=== PATIENT | female | born 1935 | race Caucasian/White ===

== ENCOUNTER 2016-12-19 17:18 | Inpatient (IN) | payer OTHER ==
[~2016-12-19] VITALS: Ht 162.6 cm; Wt 58.6 kg
--- NOTE | ~2016-12-19 | HC ---
[facility] [address] [place] [address] CONSULTATION Name: EBER LANDA RODRI Room #: 209-P ADM IN M.R.#: [id number] Admission: 12/19/16 Attend Phys: Modesto Melendez DO Discharge: Date of : 33 Report #: [id number] THIS REPORT FOR: //name// CC: [facility] physician/PCP Modesto Melendez DATE OF SERVICE: 12/21/2016 HISTORY OF PRESENT ILLNESS: The patient is an 81-year-old white female who was admitted with increased shortness of breath. She was noted to have hypoxia, acute exacerbation of COPD with acute hypoxemic respiratory failure. Pulmonary medicine is involved. She is on nasal prong O2, currently 3.5 liters. She is on IV Solu-Medrol as well as IV levofloxacin and breathing treatments as per respiratory therapy. We are seeing her in rehabilitation medicine consultation. PAST MEDICAL HISTORY: Includes cervical laminectomy, pulmonary hypertension, COPD, hyperlipidemia, prior left wrist fracture. HABITS: No history of tobacco or ETOH usage/abuse. MEDICATIONS: Please see the full medication listing. ALLERGIES: PENICILLIN. SOCIAL HISTORY: Lives alone, has oxygen at home, although she is uncertain how much. She notes she will use it when she is lying on the couch, watching television. She indicated that she did not utilize gait aids. There are 4 steps into her house. She does not always wear her oxygen. She does drive in the community. She has a daughter that lives in [place] and from the case management notes, it sounds like they do not get along. She also has a son who is not involved per case management notes. REVIEW OF SYSTEMS: Did not offer any current complaints of chest pain, but complains of the cough. Some shortness of breath with increased activity. No abdominal complaints. No focal extremity complaints. PHYSICAL EXAMINATION: GENERAL: She is cantankerous 81-year-old white female, not fully cooperative with this examiner. VITAL SIGNS: Temperature is 97.3, pulse 80, respirations 16, blood pressure 153/73. She is currently on 3-1/2 liters nasal prong O2. HEENT: Facies appeared symmetric. EXTREMITIES: She has functional range of motion of both upper and lower extremities. Strength is grade 4-/5. DTRs are trace to 1. Tone appeared to be intact. No distal lower extremity edema. No focal calf swelling. [address] [address] CONSULTATION Name: SYEDAEBER RODESSA Room #: 209-P [facility] IN M.R.#: [id number] Admission: 12/19/16 Attend Phys: Modesto Melendez DO Discharge: Date of : 33 Report #: [id number] ASSESSMENT: An 81-year-old white female with the following problem list: 1. Pulmonary rehabilitation. 2. Acute hypoxemic respiratory failure. 3. Acute exacerbation of chronic obstructive pulmonary disease. 4. Community-acquired pneumonia. 5. Chronic respiratory disease. 6. Dehydration. 7. Past history of chronic tobacco use. There is a reference of chronic tobacco history. 8. Elevated troponin. 9. Prior cervical laminectomy. 10. History of pulmonary hypertension. 11. Hyperlipidemia. 12. Acute on chronic respiratory failure. PLAN: Therapy evaluations are underway. We will be glad to follow along with you regarding rehab therapy needs. By: 0914 1101 Zachery Guillaume MD /nt
--- NOTE | ~2016-12-19 | HC ---
[facility] [place] [address] CONSULTATION Name: EBER LANDA RODRI Room #: 209-P ADM IN M.R.#: [id number] Admission: 12/19/16 Attend Phys: Modesto Melendez DO Discharge: Date of : 33 Report #: [id number] THIS REPORT FOR: //name// CC: [facility] physician/PCP Modesto Melendez DATE OF SERVICE: 12/20/2016 DATE OF SERVICE: 12/20/2016. REFERRING PROVIDER: Dr. Modesto Melendez. REASON FOR CONSULTATION: Exacerbation of chronic obstructive pulmonary disease. HISTORY OF PRESENT ILLNESS: Our group was asked to consult on the patient, a pleasant 81-year-old woman with a past pulmonary history significant for severe tobacco abuse, quitting several years ago as well as for chronic obstructive pulmonary disease. She has a p.r.n., albuterol inhaler at home, has not seen a physician on a regular basis. Has had increased shortness of breath and cough for the past 3 days with some associated wheezing. Denies any fevers, chills or sweats. Has some supplemental oxygen at home, but has not been using it either, presented to the Emergency Department for further evaluation because of persistent symptoms. She was found to be hypoxemic in the Emergency Department. Chest x-ray yesterday evening did suggest chronic obstructive pulmonary disease and early right lower lung infiltrate. She has been admitted on therapy for community-acquired pneumonia and acute exacerbation of chronic obstructive pulmonary disease. ALLERGIES: Include PENICILLIN. PAST MEDICAL HISTORY: 1. Chronic obstructive pulmonary disease, severity not quantified in the records available. 2. History of pulmonary hypertension. 3. Hyperlipidemia. OUTPATIENT MEDICATIONS: None. SOCIAL HISTORY: The patient is an ex-smoker. No significant alcohol consumption and lives independently, has 3 cats. FAMILY HISTORY: Noncontributory due to advanced age. REVIEW OF SYSTEMS: Rest of 12 point review of systems is normal. PHYSICAL EXAMINATION: [facility] [address] [place] [address] CONSULTATION Name: EBER LANDA NEWELL Room #: 209-P [facility] IN [facility]#: [id number] Admission: 12/19/16 Attend Phys: Modesto Melendez, DO Discharge: Date of : 33 Report #: [id number] VITAL SIGNS: Afebrile, pulse 70s, respiratory rate 18, blood pressure 130/48, oxygen saturation 93% on 4 liters. GENERAL: This is a pleasant elderly woman, in no apparent distress. ENT: Clear oropharynx. Mallampati 1 airway. NECK: Supple. No lymphadenopathy. Jugular venous pressure not elevated. LUNGS: Revealed prolonged expiratory phase, diffuse expiratory wheezes noted throughout. CARDIOVASCULAR: Heart was regular. No murmurs noted. ABDOMEN: Soft, nontender, no masses. EXTREMITIES: Warm, 2+ pulses, no edema. INTEGUMENT: No rash identified. LABORATORY DATA: White blood cell count 3000, hemoglobin 12, hematocrit 36, platelet count 135 and MCV is 79. Sodium 142, potassium 4.2, chloride 103, bicarbonate 28, BUN 42, creatinine 1.0. Glucose 247. Arterial blood gas on 4 liters revealed pH 7.42, pCO2 of 45, pO2 of 50, bicarbonate 29. INR 1.0. Cultures are pending. No sputum culture ordered. IMPRESSION: 1. Acute exacerbation of chronic obstructive pulmonary disease. 2. Acute hypoxemic respiratory failure. 3. Community-acquired pneumonia, possibly influenza. SUGGESTIONS: 1. Steroid taper. 2. Bronchodilators, begin with DuoNebs. 3. Continue with Rocephin and azithromycin. 4. Nasal swab for respiratory viral panel. 5. Await sputum and blood cultures. 6. Follow up chest radiograph. 7. Mobilize. 8. Additional recommendations to follow. Thank you for requesting our suggestions. <ELECTRONICALLY SIGNED> By: Sai Bolton MD 12/24/16 1118 [id number] [id number] Sai Bolton MD /nt
--- NOTE | ~2016-12-19 | HC ---
[facility] [place] [address] CONSULTATION Name: EBER LANDA RODRI Room #: 209-P ADM IN M.R.#: [id number] Admission: 12/19/16 Attend Phys: Modesto Melendez DO Discharge: Date of : 33 Report #: [id number] THIS REPORT FOR: //name// CC: [facility] physician/PCP Modesto Melendez REASON FOR CONSULTATION: Elevated troponin. HISTORY OF PRESENT ILLNESS: The patient is an 81-year-old woman with severe chronic obstructive pulmonary disease with pulmonary hypertension. She was admitted with COPD exacerbation. In this setting, a troponin was ordered and elevated at 0.22. Interestingly, every troponin that she has had has been abnormal for the past 4-5 years. An echocardiogram this admission, which I have reviewed demonstrated normal left ventricular systolic function. Right atrial enlargement and severe pulmonary hypertension. The patient denies chest pain, pressure or ischemic type symptoms. No history of palpitations, near syncope or syncope. Her main problem is productive cough, exertional breathlessness and wheezing. ALLERGIES: She is allergic to PENICILLIN. MEDICATIONS: She takes no home medicines. She has been prescribed atenolol for unknown reasons but ran out many years ago. PAST MEDICAL HISTORY: Notable for COPD, dyslipidemia, cervical laminectomy, osteoporosis. SOCIAL HISTORY: She is a former heavy smoker. FAMILY HISTORY: Unremarkable for premature coronary artery disease. REVIEW OF SYSTEMS: All systems negative except as that noted above. PHYSICAL EXAMINATION: GENERAL: A frail elderly woman in no distress. VITAL SIGNS: Blood pressure is 150/70, heart rate of 80 and regular. She is afebrile, 5 feet 4 inches tall and 113 pounds. HEENT: There are neither xanthelasma, subcutaneous xanthomata, oral mucosal or digital cyanosis or kyphoscoliosis present. CHEST: Reveals scattered rhonchi, diminished breath sounds at both bases, expiratory wheezes. CARDIAC: Regular rate and rhythm with an increased pulmonic closure sound. ABDOMEN: Soft and nontender. EXTREMITIES: Without cyanosis, clubbing or edema. Radial pulses are 2+. NEUROLOGIC: She is alert with a nonfocal exam. LABORATORY DATA: Sodium 137, potassium 3.5, creatinine 0.9. Troponin 0.19. [facility] [address] [place] [address] CONSULTATION Name: EBER LANDA PONSFORD Room #: 209-P ADM IN .R.#: [id number] Admission: 12/19/16 Attend Phys: Modesto Melendez DO Discharge: Date of : 33 Report #: [id number] ProBNP 3243. White count 8.4, hemoglobin 11, hematocrit 35, platelet count 174. RADIOLOGICAL DATA: Chest x-ray demonstrates chronic scarring in both lungs. IMPRESSION: 1. Chronic obstructive pulmonary disease exacerbation; pneumonia. 2. Severe pulmonary hypertension; right ventricular strain. 3. Prior tobacco dependency. 4. Tiny troponin elevation, chronic, consistent with right ventricular strain and severe pulmonary hypertension; chronic obstructive pulmonary disease exacerbation. RECOMMENDATIONS: Primary treatment directed towards exacerbation in her lung disease. At this point, no additional cardiovascular testing is warranted, I have discussed these issues with the patient. Thank you for asking me to participate in her care. <ELECTRONICALLY SIGNED> By: Morales Benavides MD, FACC 12/22/16 1217 0950 1122 Morales Benavides MD, FAC /nt
--- NOTE | ~2016-12-19 | EKG ---
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1935 Requested By: Jerome Zimmerman Order Number: [id number] MD: Morales Benavides Measurements Intervals Toponas Rate: 69 P: 72 FL: 138 QRS: 76 QRSD: 92 T: 16 QT: 445 QTc: 477 Interpretive Statements Sinus rhythm Borderline low voltage, extremity leads Nonspecific ST and T wave abnormality Baseline wander Compared to ECG 03/09/2016 21:57:00 Nonspecific change in the ST and T wave segments Electronically Signed On 12-20-2016 9:01:26 [employer] by Morales Benavides [email or web address] <ELECTRONICALLY SIGNED> By: Morales Benavides MD, [facility] 12/20/16900 181 16 Morales Benavides MD, [facility] /EPI
--- NOTE | ~2016-12-19 | 2DMMODE ---
[facility] [employer] [place] [address] 2 D/M-MODE ECHOCARDIOGRAM Name: SYEDAEBER RODRI Room #: 209-P [facility] IN .R.#: [id number] Admission: 12/19/16 Attend Phys: Modesto Melendez, Discharge: Date of : 33 Date of Service: 12/20/16 0948 Report #: [id number] THIS REPORT FOR: //name// APPROVED REPORT EXAM: Comprehensive 2D, Doppler, and color-flow Echocardiogram Patient Location: In-Patient/Room 209 Blood Pressure: 130/48 mmHg HR: 72 bpm Other Information Study Quality: Adequate Indications Dyspnea Hx: PHTN, COPD, HLP 2D Dimensions RVDd: 36.38 mm LVEF(%): 70.94 (>50%) IVSd: 10.07 (7-11mm) LVOT Diam: 20.06 (18-24mm) LVDd: 41.47 mm PWd: 9.86 (7-11mm) Ascending Aorta: 30.76 mm LVDs: 24.93 (25-40mm) Aortic Root: 30.00 mm Maxwell's LVEF: 70.94 % Volumes Left Atrial Volume (Systole) Single Plane 4CH: 25.71 mL Single Plane 2CH: 41.77 mL LA ESV Index: 23.00 mL/m2 Aortic Valve AoV Peak Ethan.: 1.75 m/s AO Peak Gr.: 12.25 mmHg LV Max P.70 mmHg LV Max: 1.19 m/s Mitral Valve MV PHT: 79.88 ms MV E Max Ethan.: 0.89 m/s E/A Ratio: 0.8 MV A Ethan.: 1.11 m/s MV Decel. Time: 275.46 ms TDI [facility] [employer] [place] [address] 2 D/M-MODE ECHOCARDIOGRAM Name: EBER LANDA PAGE Room #: 209-[facility] IN M.R.#: [id number] Admission: 12/19/16 Attend Phys: Modesto Melendez, Discharge: Date of : 33 Date of Service: 12/20/16 0948 Report #: [id number] E/Lateral E': 11.00 E/Medial E': 13.00 Pulmonary Valve PV Peak Ethan.: 1.16 m/s PV Peak Gr.: 5.50 mmHg Tricuspid Valve TR Peak Ethan.: 3.55 m/s RAP Estimate: 5.00 mmHg TR Peak Gr.: 50.34 mmHg RVSP: 55.00 mmHg Left Ventricle The left ventricle is normal size. There is normal LV segmental wall motion. There is normal left ventricular wall thickness. Left ventricular systolic function is normal. LVEF is 60%. Grade I - abnormal relaxation pattern. Right Ventricle The right ventricle is normal size. The right ventricular systolic function is normal. Atria The left atrium size is normal. Right atrium appears mildly dilated. Aortic Valve Aortic valve is mildy calcified. No aortic regurgitation is present. There is no aortic valvular stenosis. Mitral Valve Mitral valve leaflets are mildly thickened and calcified. Trace mitral regurgitation. Tricuspid Valve The tricuspid valve is normal in structure. There is moderate tricuspid regurgitation. The right atrial pressure is estimated at 5 mmHg. Right ventricular systolic pressure is estimated at 55 mmHg. There is moderate pulmonary hypertension. Pulmonic Valve The pulmonary valve is normal in structure. Trace pulmonic regurgitation. Great Vessels The aortic root is normal in size. IVC is normal in size and collapses >50% with inspiration. Pericardium [facility] [address] [place] [address] 2 D/M-MODE ECHOCARDIOGRAM Name: SYEDAEBER PAGE Room #: 209-P [facility] IN .R.#: [id number] Admission: 12/19/16 Attend Phys: Modesto Melendez, Discharge: Date of : 33 Date of Service: 12/20/16 0948 Report #: [id number] There is no pericardial effusion. <Conclusion> The left ventricle is normal size. There is normal left ventricular wall thickness. Left ventricular systolic function is normal. The right ventricle is normal size. The left atrium size is normal. Right atrium appears mildly dilated. There is no aortic valvular stenosis. Trace mitral regurgitation. There is moderate tricuspid regurgitation. The right atrial pressure is estimated at 5 mmHg. Right ventricular systolic pressure is estimated at 55 mmHg. There is moderate pulmonary hypertension. There is no pericardial effusion. <ELECTRONICALLY SIGNED> By: Festus Chinchilla MD 12/20/16947 7 7 Festus Chinchilla MD /INF
[~2016-12-19 17:18] MED LIST: ACETAMINOPHEN325 M1 PO; ADVAIR 250-501 EACH INH; AMBIEN 10 MG TA10 MG PO; AMITRIPTYLINE H50 M3 PO; BP MED; COMBIVENT INH; DUONEB 2.5-0.5 M3 ML INH; ENALAPRIL MALEA10 M1 PO; ENOXAPARIN30 MG/0.1 SUBQ; NEXIUM40 MG PO; NORCO 5-325 TA1 EACH PO; PREDNISONE 20 M20 MG PO; SIMVASTATIN40 MG PO; TRAMADOL 50 MG50 MG PO
[2016-12-19 17:44] LABS: ABSOLUTE NEUTROPHILS 4.4 thou/uL (1.4-8.2); BASOPHILS 0.6 % (0.0-2.0); EOSINOPHILS 2.2 % (0.0-3.0); HEMATOCRIT 41.6 % (37.0-47.0); HEMOGLOBIN 13.4 gm/dL (12.0-15.0); LYMPHOCYTES 18.4 % (24.0-44.0); MCH 25.6 pg (26.0-34.0); MCHC 32.1 g/dL (28.0-37.0); MCV 79.5 fL (80.0-100.0); MONOCYTES 6.1 % (1.0-8.0); PLATELET COUNT 188 thou/uL (150-400); POLYS 72.7 % (36.0-66.0); RBC 5.23 mil/uL (4.20-5.00); RDW 17.1 % (10.5-14.5); WBC 6.1 thou/uL (4.0-11.0)
[2016-12-19 17:52] LABS: MANUAL DIFF NO
[2016-12-19 17:58] LABS: PROTIME 10.8 Seconds (9.3-11.4)
[2016-12-19 18:01] LABS: CALCIUM 8.9 mg/dL (8.5-10.1); POTASSIUM 3.5 mmol/L (3.5-5.1)
[2016-12-19 18:10] LABS: ALBUMIN 3.5 g/dL (3.4-5.0); TOTAL BILIRUBIN 0.6 mg/dL (<0.1-1.0); TOTAL PROTEIN 7.5 g/dL (6.4-8.2); TROPONIN-I 0.51 ng/mL (<0.04-0.07)
[2016-12-19 18:23] LABS: ABG SAMPLE TYPE ARTERIAL; BE(vivo) 3.5 mmol/L (-2 to +3); HCO3 28.5 mmol/L (22.0-26.0); O2(CT) 16.5 mL/dL (15.0-23.0); O2Hb 89.2 % (92.0-98.0); PCO2 44.9 mmHg (35.0-45.0); PO2 58.4 mmHg (80.0-100.0); pH 7.421 (7.360-7.450); sO2 90.7 % (92.0-98.0); tCO2 29.9 mmol/L (24.0-30.0)
[2016-12-19 18:24] LABS: STICK SITE R.RADIAL
[2016-12-19] MEDS ORDERED: HYDROCODONE-AP1 EAC6 PO (21:01)
[2016-12-20 03:32] LABS: HEMATOCRIT 36.3 % (37.0-47.0); HEMOGLOBIN 11.5 gm/dL (12.0-15.0); MANUAL DIFF YES; MCH 25.3 pg (26.0-34.0); MCHC 31.8 g/dL (28.0-37.0); MCV 79.4 fL (80.0-100.0); PLATELET COUNT 135 thou/uL (150-400); RBC 4.57 mil/uL (4.20-5.00); RDW 16.9 % (10.5-14.5); WBC 3.3 thou/uL (4.0-11.0)
[2016-12-20 03:47] LABS: POTASSIUM 4.2 mmol/L (3.5-5.1)
[2016-12-20 07:48] LABS: TOTAL CELL COUNT 100
[2016-12-20 07:49] LABS: ANISOCYTOSIS 1+; LARGE PLATELETS FEW; MICROCYTES SLIGHT
[2016-12-20 07:50] LABS: TOXIC GRANULATION SLIGHT
[2016-12-20 21:27] LABS: URINE BILIRUBIN NEGATIVE (Negative); URINE BLOOD NEGATIVE (Negative); URINE COLOR YELLOW; URINE GLUCOSE-RANDOM* TRACE (Negative); URINE KETONES NEGATIVE (Negative); URINE NITRITE NEGATIVE (Negative); URINE PROTEIN (DIPSTICK) NEGATIVE (Negative); URINE SPECIFIC GRAVITY 1.015 (1.003-1.035); URINE UROBILINOGEN 0.2 E.U./dl (0.2-1.0)
[2016-12-21 03:37] LABS: HEMOGLOBIN 11.3 gm/dL (12.0-15.0); MCH 25.6 pg (26.0-34.0); MCHC 32.3 g/dL (28.0-37.0); MCV 79.2 fL (80.0-100.0); PLATELET COUNT 174 thou/uL (150-400); RBC 4.42 mil/uL (4.20-5.00); RDW 17.3 % (10.5-14.5); WBC 8.4 thou/uL (4.0-11.0)
[2016-12-21 03:43] LABS: MANUAL DIFF YES
[2016-12-21 03:51] LABS: CALCIUM 8.5 mg/dL (8.5-10.1); CREATININE 0.9 mg/dL (0.6-1.3); POTASSIUM 3.5 mmol/L (3.5-5.1)
[2016-12-21 06:13] LABS: ABSOLUTE NEUTROPHILS 7.6 thou/uL (1.4-8.2); ANISOCYTOSIS 1+; MICROCYTES 1+; TOTAL CELL COUNT 100
[2016-12-21 09:31] LABS: CHOLESTEROL 140 mg/dL (<200); HDL CHOLESTEROL 46 mg/dL (>40); LDL CHOLESTEROL 81 mg/dL (<100); TRIGLYCERIDE 65 mg/dL (<150); VLDL 13 mg/dL (<40)
[2016-12-24 03:58] LABS: ALBUMIN 2.6 g/dL (3.4-5.0); CREATININE 0.7 mg/dL (0.6-1.3); POTASSIUM 4.7 mmol/L (3.5-5.1); TOTAL BILIRUBIN 0.2 mg/dL (<0.1-1.0); TOTAL PROTEIN 5.2 g/dL (6.4-8.2)
[2016-12-24 04:34] LABS: HEMATOCRIT 33.2 % (37.0-47.0); HEMOGLOBIN 10.5 gm/dL (12.0-15.0); MCH 25.2 pg (26.0-34.0); MCHC 31.6 g/dL (28.0-37.0); MCV 79.8 fL (80.0-100.0); PLATELET COUNT 181 thou/uL (150-400); RBC 4.15 mil/uL (4.20-5.00); RDW 17.4 % (10.5-14.5); WBC 7.9 thou/uL (4.0-11.0)
[2016-12-24 04:40] LABS: MANUAL DIFF YES
[2016-12-24 06:57] LABS: ABSOLUTE NEUTROPHILS 7.5 thou/uL (1.4-8.2); METAMYELOCYTES 1 %; MYELOCYTES 1 %; TOTAL CELL COUNT 100
[2016-12-24 06:58] LABS: ANISOCYTOSIS 1+; MICROCYTES 1+
[2016-12-24 23:11] LABS: INFLUENZA B Negative (Negative); METAPNEUMOVIRUS Negative (Negative)
[2016-12-25] MEDS ORDERED: TESSALON PERLE100 MG PO (13:17)
[2016-12-25] MEDS ORDERED: DUONEB 2.5-0.5 M3 ML INH (13:17)
[2016-12-25] MEDS ORDERED: ENOXAPARIN30 MG/0.1 SUBQ (13:17)
[2016-12-25] MEDS ORDERED: ACETYLCYST200 MG/1 M INH (13:17)
[2016-12-25] MEDS ORDERED: AMBIEN 5 MG TABL5 M1 PO (13:17)
[2016-12-25] MEDS ORDERED: LEVAQUIN 500 M500 M2 PO (13:17)
[2016-12-25] MEDS ORDERED: HYDROCODONE-CH473 M1 PO (13:17)
[2016-12-25] MEDS ORDERED: PREDNISONE 10 M10 MG PO (13:17)
== END 2016-12-25 16:19 | DRG 871 ==
LOC: ER 17:18 → EROBS 18:26 → 2N 18:26
PROVIDERS: Hospitalist; Internal Medicine Geriatric Medicine; Internal Medicine Pulmonary Disease; Nurse Practitioner Family; Physician Assistant
DX: A41.9 Sepsis, unspecified organism (principal); J18.9 Pneumonia, unspecified organism; J96.21 Acute and chronic respiratory failure with hypoxia; E46 Unspecified protein-calorie malnutrition; J44.1 Chronic obstructive pulmonary disease with (acute) exacerbation; J44.0 Chronic obstructive pulmonary disease with (acute) lower respiratory infection; E78.5 Hyperlipidemia, unspecified; E86.0 Dehydration; F41.9 Anxiety disorder, unspecified; I27.2 Other secondary pulmonary hypertension; Z60.2 Problems related to living alone; Z68.22 Body mass index [BMI] 22.0-22.9, adult; Z79.899 Other long term (current) drug therapy; Z88.0 Allergy status to penicillin; Z87.891 Personal history of nicotine dependence; Z87.81 Personal history of (healed) traumatic fracture; Z82.49 Family history of ischemic heart disease and other diseases of the circulatory system
CPT/HCPCS: 10081

== ENCOUNTER 2016-12-25 11:02 | Inpatient (IN) | payer OTHER ==
[~2016-12-25] VITALS: Ht 165.1 cm; Wt 58.2 kg
--- NOTE | ~2016-12-25 | PLAN ---
[facility] [place] [address] REHAB UNIT PLAN OF CARE Name: EBER LANDA RODRI Room #: 511-P [facility] IN M.R.#: [id number] Admission: 12/25/16 Attend Phys: Zachery Guillaume MD Discharge: 01/04/17 Date of : 33 Report #: [id number] THIS REPORT FOR: //name// CC: Zachery Guillaume [facility] physician/PCP The patient was seen back earlier this morning. Temperature 36.6, pulse 95, respirations 16, and blood pressure 166/68. She was having some difficulty with a significant cough and with dyspnea on exertion. Appreciate pulmonary medicine involvement. Respiratory therapy has been requested with IPV therapy being added. From a functional perspective, the patient has been transferring with contact guard assistance. She has ambulated up to 65 feet yesterday with a front-wheeled walker 20 feet today. In occupational therapy, she has been needing contact guard for basic dressing activities. In speech therapy, she has mild comprehensive deficits with functional expression. ASSESSMENT: 1. Pulmonary rehabilitation. 2. Acute hypoxemic respiratory failure. 3. Acute exacerbation of chronic obstructive pulmonary disease. 4. Community-acquired pneumonia. 5. Chronic respiratory disease. 6. Dehydration. 7. Past history of chronic tobacco abuse. 8. Elevated troponin. 9. Prior cervical laminectomy. 10. History of pulmonary hypertension. 11. Hyperlipidemia. 12. Acute on chronic respiratory failure. PLAN: The overall plan of care is based on the preadmission screen, post-admission physician evaluation and information garnered from therapy assessments. 1. Estimated length of stay is probably 10 days to 2 weeks and potentially longer if needed. 2. Medical prognosis is reasonably good. 3. Anticipated interventions includes the interdisciplinary acute inpatient rehabilitation program with the goal of maximizing the patient's functional independence, so she can hopefully return back to the home setting. We will have the interdisciplinary acute rehab team involved. 4. Anticipated functional outcomes would be for the patient to become modified independent with transfers, mobility and ADLs and to improve from a pulmonary perspective. 5. Discharge destination would be back to the home setting. 6. Expected therapy by discipline includes PT and OT and speech 1 hour per day each five days a week throughout the duration of the acute inpatient [facility] [address] [place] [address] REHAB UNIT PLAN OF CARE Name: EBER LANDA ELROD Room #: 511-P [facility] IN ..#: [id number] Admission: 12/25/16 Attend Phys: Zachery Guillaume MD Discharge: 01/04/17 Date of : 33 Report #: [id number] rehabilitation stay. We may be able to decrease the speech therapy some with increase in PT and OT. <ELECTRONICALLY SIGNED> By: Zachery Guillaume MD 01/04/17 1537 1450 1650 Zachery Guillaume MD /nt
--- NOTE | ~2016-12-25 | HC ---
[facility] [place] [address] CONSULTATION Name: EBER LANDA RODRI Room #: 511-P ADM IN M.R.#: [id number] Admission: 12/25/16 Attend Phys: Zachery Guillaume MD Discharge: Date of : 33 Report #: [id number] THIS REPORT FOR: //name// CC: Zachery Guillaume [facility] physician/PCP DATE OF SERVICE: 12/30/2016 NEUROBEHAVIORAL STATUS EXAM ATTENDING PHYSICIAN: Zachery Guillaume M.D BOARDMARKER: Paul Camacho, PhD CLINICAL PRESENTATION: The patient is an 81-year-old female admitted to the [facility] for a comprehensive inpatient rehabilitation program to assist with activities of daily living and self-care and mental status secondary to deficits from an exacerbation of chronic obstructive pulmonary disease and hypoxia. She was admitted on 12/19/2016, with acute hypoxemic respiratory failure. Her past medical history includes a cervical hemicolectomy, pulmonary hypertension, COPD, hyperlipidemia and a prior left wrist fracture. At this time, she carries a diagnosis of an acute exacerbation of COPD, community-acquired pneumonia, chronic respiratory disease, history of chronic tobacco use, dehydration, elevated troponin and a prior cervical laminectomy. An vqupx-if-miegisl respiratory failure was noted along with hyperlipidemia and a history of pulmonary hypertension and past cervical laminectomy. A complete description of her medical condition and history and medications can be found in her medical record. Neuropsychological consultation was requested to provide assistance in the assessment of cognitive and emotional status and to provide recommendations and services. Prior to this most recent admission, she reports living alone in her own home. She reports being estranged from her children. One child lives in [place] and the other in [place]. 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 She is a college graduate with a degree in [place] from [employer]. TECHNIQUES UTILIZED: Clinical interview, review of medical records, staff consultation and behavioral observation, mini mental status exam 2 standard version, verbal fluency assessment (letter and category) and clock drawing. EXAMINATION FINDINGS: She was alert and cooperative with the assessment. However, she was somewhat vague about the events surrounding her hospitalization. She presents with a brief amnesia surrounding her initial admission. Anxiety and depression are reported. Her mood appears irritable and depressed. Problems with breathing, sleep, appetite and energy level are [facility] [address] [place] [address] CONSULTATION Name: EBER LANDA SOCIAL CIRCLE Room #: 511-P [facility] IN M.R.#: [id number] Admission: 12/25/16 Attend Phys: Zachery Guillaume MD Discharge: Date of : 33 Report #: [id number] her primary complaints. She reports having maintained good relationships with peers and social support prior to this most recent medical event. Her performance on the MMSE 2 brief version was extremely low with a raw score of 11 of 16. She was 3/3 for initial registration, 4/5 for orientation to time and 4/[address]. She was 0/3 for immediate recall of 3 items after a brief time delay and distraction. Her performance on the MMSE 2 standard version was extremely low. She was 1/5 for serial sevens. She was also unable to accurately copy a simple geometric design and place the hands at a designated time. Letter fluency was in the average range with a raw score at 31 and T-score of 43. Category fluency was extremely low with a T-score at 29 and a scale score at 3. Her performance on category fluency was at the 2nd percentile. DIAGNOSTIC IMPRESSION: Neurocognitive disorder -- extent to be determined, with intermittent irritability -- [id number] at this time. Depressive disorder, unspecified with anxiety. RECOMMENDATIONS: The patient will benefit from the use of an antidepressant medicine to assist in the management of mood and anxiety. Follow up neuropsychological testing will help in the clarification of neurocognitive deficits. The use of relaxation techniques will alsolessen anxiety. She will likely require assisted living to maintain adequate safety upon discharge. I will continue to follow as needed. Thank you very much for allowing me to provide the consultation on this patient. <ELECTRONICALLY SIGNED> By: Paul Camacho, PhD 01/03/17 1744 1520 191 Paul Camacho, PhD /nt
--- NOTE | ~2016-12-25 | H ---
[facility] [place] [address] HISTORY AND PHYSICAL Name: EBER LANDA RODRI Room #: 511-P [facility] IN M.R.#: [id number] Admission: 12/25/16 Attend Phys: Zachery Guillaume MD Discharge: 01/04/17 Date of : 31 Report #: [id number] THIS REPORT FOR: //name// CC: Zachery Guillaume [facility] physician/PCP DATE OF SERVICE: 12/25/2016 HISTORY OF PRESENT ILLNESS: The patient is an 81-year-old white female who was originally admitted to [facility] on 12/19/2016, with increased shortness of breath. She was noted to have hypoxia, acute exacerbation of COPD with acute hypoxemic respiratory failure. Pulmonary medicine was involved. She was on nasal prong O2 with increased O2 needs. She was placed on IV Solu-Medrol as well as IV levofloxacin and breathing treatments. She was noted to have significant generalized weakness and debilitation. It was felt best to admit her to the acute inpatient rehab spaulding where pulmonary medicine can continue to follow along with internal medicine and she can receive the intensive therapies to maximize her functional independence. PAST MEDICAL HISTORY: Includes cervical hemicolectomy, pulmonary hypertension, COPD, hyperlipidemia, and prior left wrist fracture. HABITS: No history of tobacco or ETOH usage or abuse. MEDICATIONS: Please see the full medication listing. Each of these medications were reconciled as part of the admissions process. ALLERGIES: PENICILLIN. SOCIAL HISTORY: She lives alone, was on oxygen at home, although she is uncertain how much. She indicated that she would typically use when she was lying on the couch, watching television. She did not utilize any gait aids. There are 4 steps in her house. She notes she did not always wear her oxygen. She did drive in the community. She has a daughter that lives in [place], but it sounds like there is a personality conflict. There is also apparently a son who is not involved. REVIEW OF SYSTEMS: Did not offer any current complaints of chest pain, shortness of breath, or abdominal discomfort. No focal extremity pain complaints. PHYSICAL EXAMINATION: GENERAL: The patient is an 81-year-old white female, cantankerous, although a little more cooperative at this time when I saw her in consultation. VITAL SIGNS: She has a temperature of 98.5, pulse 73, respirations 16, blood pressure 142/62, she is on nasal prong O2, 2.5 liters. She has a moist cough. [facility] [address] [place] [address] HISTORY AND PHYSICAL Name: EBER LANDA Room #: 511-P DIS IN M.R.#: [id number] Admission: 12/25/16 Attend Phys: Zachery Guillaume MD Discharge: 01/04/17 Date of : 31 Report #: [id number] HEENT: Appeared to be benign. CHEST: Some decreased breath sounds throughout. CARDIAC: Sounded regular rate and rhythm. ABDOMEN: Bowel sounds positive, nontender. GENITOURINARY: Deferred. RECTAL: Deferred. EXTREMITIES: She has functional range of motion of both upper and lower extremities with strength a grade 4-/5. DTRs are trace to 1. Tone appears to be intact. No distal lower extremity edema. No focal calf swelling. She has been working in therapies with transfers standby assistance, gait has been contact guard with a front-wheeled walker. ASSESSMENT: An 81-year-old white female with the following problem list: 1. Pulmonary rehabilitation. 2. Acute hypoxemic respiratory failure. 3. Acute exacerbation of chronic obstructive pulmonary disease. 4. Community-acquired pneumonia. 5. Chronic respiratory disease. 6. Dehydration. 7. Past history of chronic tobacco use. 8. Elevated troponin. 9. Prior cervical laminectomy. 10. History of pulmonary hypertension. 11. Hyperlipidemia. 12. Acute on chronic respiratory failure. PLAN: The patient is admitted for acute in-hospital inpatient rehabilitation. From a postadmission physician evaluation perspective, there are no relevant changes since the preadmission screening. Please see the above review of prior and current medical and functional conditions and comorbidities. Please see the patient's prior and current functional status. As far as risk of complications, the patient has multiple medical comorbidities as noted above. The initial plan of care involves the interdisciplinary acute inpatient rehabilitation program with the goal of maximizing her functional independence, so that she can hopefully return back to her prior living situation. The goal would be for her to decrease her O2 needs, improve her functional mobility and ADLs at least at the walker level, so that she can return back to the home setting. Prognosis is reasonably good with estimated length of stay probably at least 10 days to 2 weeks pending upon her progress in her medical stability. Potential barriers would include her pulmonary condition and her comorbidities and decreased functional status. The patient meets diagnostic criteria for an acute in-hospital inpatient rehabilitation stay. She meets medical necessity criteria. She does have [facility] [address] [place] [address] HISTORY AND PHYSICAL Name: EBER LANDA Room #: 511-P DIS IN [place].Sarah.#: [id number] Admission: 12/25/16 Attend Phys: Zachery Guillaume MD Discharge: 01/04/17 Date of : 31 Report #: [id number] tolerance for therapies and has appropriate discharge goals back to the home setting. <ELECTRONICALLY SIGNED> By: Zachery Guillaume MD 01/04/17 1537 [id number] Zachery Guillaume MD /nt
[~2016-12-25 11:02] MED LIST changes: +HYDROCODONE-AP1 EAC6 PO
[2016-12-25] MEDS ORDERED: DUONEB 2.5-0.5 M3 ML INH (13:17)
[2016-12-25] MEDS ORDERED: PREDNISONE 10 M10 MG PO (13:17)
[2016-12-25] MEDS ORDERED: HYDROCODONE-CH473 M1 PO (13:17)
[2016-12-25] MEDS ORDERED: AMBIEN 5 MG TABL5 M1 PO (13:17)
[2016-12-25] MEDS ORDERED: LEVAQUIN 500 M500 M2 PO (13:17)
[2016-12-25] MEDS ORDERED: ACETYLCYST200 MG/1 M INH (13:17)
[2016-12-25] MEDS ORDERED: ENOXAPARIN30 MG/0.1 SUBQ (13:17)
[2016-12-25] MEDS ORDERED: TESSALON PERLE100 MG PO (13:17)
[2016-12-25 16:30] VITALS: BP 115/85
[2016-12-26 05:15] LABS: HEMATOCRIT 33.9 % (37.0-47.0); HEMOGLOBIN 10.9 gm/dL (12.0-15.0); MCH 25.4 pg (26.0-34.0); MCHC 32.2 g/dL (28.0-37.0); MCV 78.9 fL (80.0-100.0); RBC 4.29 mil/uL (4.20-5.00); RDW 17.7 % (10.5-14.5); WBC 10.4 thou/uL (4.0-11.0)
[2016-12-26 05:26] LABS: CALCIUM 7.9 mg/dL (8.5-10.1); CREATININE 0.8 mg/dL (0.6-1.3); POTASSIUM 4.1 mmol/L (3.5-5.1)
[2016-12-26 05:27] VITALS: BP 142/62
[2016-12-26 10:02] VITALS: BP 120/64
[2016-12-27 05:22] VITALS: BP 115/51
[2016-12-27 16:00] VITALS: BP 119/46
[2016-12-28 02:39] VITALS: BP 182/82
[2016-12-28 04:01] VITALS: BP 166/68
[2016-12-28 15:44] VITALS: BP 132/49
[2016-12-29 05:29] VITALS: BP 159/59
[2016-12-29 05:58] LABS: HEMATOCRIT 33.5 % (37.0-47.0); HEMOGLOBIN 10.6 gm/dL (12.0-15.0); MCHC 31.7 g/dL (28.0-37.0); MCV 78.9 fL (80.0-100.0); RBC 4.25 mil/uL (4.20-5.00); RDW 17.5 % (10.5-14.5); WBC 10.2 thou/uL (4.0-11.0)
[2016-12-29 06:08] LABS: CALCIUM 7.7 mg/dL (8.5-10.1); CREATININE 0.8 mg/dL (0.6-1.3); MAGNESIUM 1.8 mg/dL (1.8-2.4); POTASSIUM 4.1 mmol/L (3.5-5.1)
[2016-12-29 16:00] VITALS: BP 133/73
[2016-12-30 05:05] VITALS: BP 105/44
[2016-12-30 18:14] VITALS: BP 134/52
[2016-12-31 03:15] VITALS: BP 140/55
[2016-12-31 16:00] VITALS: BP 131/46
[2017-01-01 05:35] VITALS: BP 134/59
[2017-01-01 17:04] VITALS: BP 109/51
[2017-01-01 17:06] VITALS: BP 109/51
[2017-01-02 04:00] VITALS: BP 141/65
[2017-01-02 15:30] VITALS: BP 109/50
[2017-01-03 04:09] VITALS: BP 147/52
[2017-01-03 10:00] VITALS: BP 127/55
[2017-01-03 16:21] VITALS: BP 147/52
[2017-01-04 02:30] VITALS: BP 155/68
[2017-01-04 10:33] VITALS: BP 147/52
[2017-01-04 11:45] VITALS: BP 147/52
== END 2017-01-04 14:33 | disposition home health service (06) | DRG 193 ==
PROVIDERS: Nurse Practitioner Family; Physical Medicine & Rehabilitation
DX: J18.8 Other pneumonia, unspecified organism (principal); J96.21 Acute and chronic respiratory failure with hypoxia; J44.1 Chronic obstructive pulmonary disease with (acute) exacerbation; J44.0 Chronic obstructive pulmonary disease with (acute) lower respiratory infection; E86.0 Dehydration; I27.2 Other secondary pulmonary hypertension; E78.5 Hyperlipidemia, unspecified; Z60.2 Problems related to living alone; F01.50 Vascular dementia, unspecified severity, without behavioral disturbance, psychotic disturbance, mood disturbance, and anxiety; G47.00 Insomnia, unspecified; K59.00 Constipation, unspecified; F32.9 Major depressive disorder, single episode, unspecified; F41.9 Anxiety disorder, unspecified; Z79.899 Other long term (current) drug therapy; Z88.0 Allergy status to penicillin; Z87.81 Personal history of (healed) traumatic fracture; Z90.49 Acquired absence of other specified parts of digestive tract; Z87.891 Personal history of nicotine dependence; Z99.81 Dependence on supplemental oxygen
CPT/HCPCS: 10112

== ENCOUNTER → 2017-01-28 | Outpatient (CLI) | payer OTHER ==
[~2017-01-28] MED LIST changes: +ACETYLCYST200 MG/1 M INH; +AMBIEN 5 MG TABL5 M1 PO; +HYDROCODONE-CH473 M1 PO; +LEVAQUIN 500 M500 M2 PO; +PREDNISONE 10 M10 MG PO; +TESSALON PERLE100 MG PO
== END ==
LOC: RAD 13:42
DX: Z12.31 Encounter for screening mammogram for malignant neoplasm of breast (principal)

== ENCOUNTER 2019-10-29 22:48 | Inpatient (IN) | payer OTHER ==
[~2019-10-29] VITALS: Ht 154.9 cm; Wt 49.0 kg
[2019-10-29 22:50] VITALS: BP 142/72
[2019-10-30] MEDS ORDERED: TYLENOL WITH CO1 TA1 PO (01:58)
[2019-10-30 02:42] LABS: HEMATOCRIT 47.6 % (37.0-47.0); HEMOGLOBIN 14.9 gm/dL (12.0-15.0); MCH 29.1 pg (26.0-34.0); MCHC 31.4 g/dL (28.0-37.0); MCV 92.6 fL (80.0-100.0); RBC 5.14 mil/uL (4.20-5.00); RDW 14.3 % (10.5-14.5); WBC 14.1 thou/uL (4.0-11.0)
[2019-10-30 02:46] LABS: CALCIUM 8.8 mg/dL (8.5-10.1); CREATININE 0.9 mg/dL (0.6-1.0); POTASSIUM 3.8 mmol/L (3.5-5.1)
[2019-10-30 02:51] LABS: ALBUMIN 3.6 g/dL (3.4-5.0); TOTAL BILIRUBIN 0.4 mg/dL (<0.1-1.0); TOTAL PROTEIN 7.1 g/dL (6.4-8.2)
[2019-10-30 03:11] VITALS: BP 123/68
[2019-10-30 04:10] VITALS: BP 143/78
--- NOTE | 2019-10-30 04:36 | NUR ---
PATIENT IS AN ADMIT FROM THE ED. ARRIVED AT APPROX. 0340 WITH FAMILY AT BEDSIDE. PATIENT IS ALERT AND ORIENTED BUT IRRITABLE. PATIENT STATES PAIN AND IS GRIMACING BUT REFUSES PAIN MEDS SHE "WANTS TO BE LEFT ALONE". VITAL SIGNS ARE STABLE, O2 SATS ARE AT 93% ON 2L; WILL BE TAPERING DOWN. ASSESSMENT CHARTED WITH ASSIST FROM GUNNAR CLANCY. LUE IMMOBILIZER IN PLACE; R ANKLE DEFORMITY WILL BE MONITORED. PLAN IS TO HAVE SOCIAL WORK SPEAK WITH PATIENT ABOUT "HOARDING PROBLEM" AND NEEDING HELP AT HOME. FALL PRECAUTIONS IN PLACE, FLUIDS TO START INFUSING ON R AC. WILL CONTINUE TO MONITOR
[2019-10-30 08:14] LABS: HEMOGLOBIN 13.4 gm/dL (12.0-15.0); MCH 29.4 pg (26.0-34.0); MCHC 31.9 g/dL (28.0-37.0); MCV 92.2 fL (80.0-100.0); RBC 4.56 mil/uL (4.20-5.00); RDW 14.3 % (10.5-14.5); WBC 16.3 thou/uL (4.0-11.0)
[2019-10-30 08:22] LABS: CALCIUM 9.1 mg/dL (8.5-10.1); CREATININE 1.1 mg/dL (0.6-1.0)
[2019-10-30 08:25] VITALS: BP 142/87
[2019-10-30 08:25] LABS: POTASSIUM 5.3 mmol/L (3.5-5.1)
--- NOTE | 2019-10-30 15:59 | NUR ---
Met with patient and sp with dtr and hr spouse outside of room. Patient with need for post acute care at dc. Dtr reports she has been at [facility] in past and family has called facility and sp with [place] [facility]. In looking at face sheet noted Bola GUEVARA. Dtr reports that is patients banker and long time friend. She reports he has added her to DPOA and plans paperwork on Saturday. Dtr reports she has only recently been "back in picture" with her mother. Her and spouse in town until Saturday to assist with dc and future plans. Patient lives in home with elevator. She is a hoarder and dtr reports she cannot return home due to conditions. They plan to assist with cleaning home while patient in rehab and possible dc from skilled with pvt dty at home or Assisted Living. Resources to family, referral to [facility].
--- NOTE | 2019-10-30 17:22 | NUR ---
FAXED REFERRAL TO [facility] RECEIVED CONFIRMATION AND LEFT MSG WITH DERRICK IN ADM THAT POSS DC SATURDAY. DP TO [facility].
--- NOTE | 2019-10-30 20:28 | NUR ---
ASSUMED CARE OF PATIENT AT 0715, PATIENT ALERT AND ORIENTED X 4. PATIENT IS FUSSY AND IRRITABLE MOST OF THE SHIFT. PATIENT C/O PAIN WITH LEFT SHOULDER, IMMOBILIZER IN PLACE. PATIENT ASSISTED UP TO THE COMMODE THIS HIFT, PT EVAL. DONE. PATIENT C/O NAUSEA X 2 THIS SHIFT, AND HAD SMALL AMOUNT OF EMESIS THIS SHIFT X 2. FAMILY AT BEDSIDE. ASIF/KENTON GAVE THE FAMILY SKILLED FACILITIES TO LOOK OVER FOR THE PATIENT UPON DISCHARGE. FALL PRECAUTIONS IN PLACE. RIGHT AC IV WENT BAD, IV TEAM CALLED, NEW IV RIGHT FOREARM WITH NS AT 80CC/HR. DR BARRIOS NOTIFIED ABOUT POTASSIUM LEVEL GOING FROM 3.8 TO 5.3, LAB CALLED WITH THIS RESULT. PATIENT HAS POOR APPETITE. WILL CONTINUE TO MONITOR.
--- NOTE | 2019-10-30 23:48 | NUR ---
ASSUMED CARE OF PATIENT AT SHIFT CHANGE. ASSESSMENT CHARTED. MEDICATIONS GIVEN PER MAR. PATIENT IS A&OX4 BUT REMAINS IRRITABLE. FAMILY SAYS THIS IS HER BASELINE. PATIENTS VITAL SIGNS HAVE BEEN STABLE SINCE ARRIVAL; PATIENT WAS UP TO [facility] AND REFUSED BEGINNING OF SHIFT VITAL SIGNS DUE TO PAIN. PATIENT COMPLAINS OF PAIN AT A 5/10 SCALE; PRN MORPHINE GIVEN WITH ASSIST FROM GUNNAR KIM. PATIENT ALSO RECIEVED ZOFRAN W MORPHINE. PATIENT HAS NAUSEA WITH/ HEAVING AND/OR VOMITING EACH TIME SHE TRANSFERS FROM BED TO [facility]. PATIENT GETS UP TO [facility] X1 OR 2 ASSIST AND REPORTS USING A WALKER TO HELP W AMBULATION. PATIENT HAS FLUIDS RUNNING AT 80MLS/HR ON R FA; IV IS PATENT. PATIENT WOULD LIKE "QUIET" AND COMPLAINS OF PEOPLE "BICKERING AND BEING LOUD" OUT AT THE NURSES STAION. THIS NURSE ASSUSRED PATIENT THAT AFTER SHIFT CHANGE, WE WOULD BE QUIET. PATIENT VOICES NO OTHER CONCERNS. FALL PRECAUTIONS IN PLACE, PATIENT REMINDED TO USE CALL LIGHT FOR ASSIST. ROOM NEAR NURSES STATION AND FREQUENT ROUNDING IN PLACE. PLAN IS TO STAY HERE OVER WEEKEND AND D/C TO [facility] OP. WILL CONTINUE TO MONITOR AND FOLLOW POC.
--- NOTE | 2019-10-31 04:23 | NUR ---
THIS NURSE AGREES WITH ASSESSMENT AND NOTES BY FRUIT HARVESTER ON THIS PATIENT.
[2019-10-31 08:24] VITALS: BP 129/59
[2019-10-31 09:31] LABS: URINE BILIRUBIN NEGATIVE (Negative); URINE BLOOD NEGATIVE (Negative); URINE CLARITY CLEAR; URINE COLOR YELLOW; URINE GLUCOSE-RANDOM* NEGATIVE (Negative); URINE KETONES NEGATIVE (Negative); URINE LEUKOCYTES-REFLEX NEGATIVE (Negative); URINE NITRITE-REFLEX NEGATIVE (Negative); URINE PROTEIN (DIPSTICK) NEGATIVE (Negative); URINE SPECIFIC GRAVITY >= 1.030 (1.005-1.035); URINE UROBILINOGEN 0.2 E.U./dl (0.2-1.0)
--- NOTE | 2019-10-31 17:15 | NUR ---
PT IS AOX4, VSS, PAIN CONTROLLED WITH IV PAIN ANALGESIC. PT IS WORKING WELL WITH PT/OT. TOLERATING DIET BUT HAS A POOR APPETITE. FALL PRECAUTIONS IN PLACE, PT USES BSC, IV PATENT IN RIGHT FOREARM WITH FLUIDS RUNNING. PT HAS 2L 02 PER NC. LEFT ARM IN A SLING, CALL LIGHT/PERSONAL ITEMS IN REACH. WILL CONTINUE TO MONITOR PT.
[2019-10-31 18:00] VITALS: BP 128/63
[2019-10-31 20:22] VITALS: BP 117/54
--- NOTE | 2019-11-01 02:18 | NUR ---
ASSUMED CARE OF PATIENT AT SHIFT CHANGE. ASSESSMENT CHARTED. MEDICATIONS GIVEN PER EMAR. PATIENT IS A&OX4, VSS, O2 SATURATION 99% AT 3L. PATIENT VOICES PAIN AT HER LEFT SHOULDER, 5/10 ON A NUMERIC SCALE. PATIENT UP TO CHAIR AND BSC TOLERATING MORE THAN LAST NIGHT. PATIENTS SOA W ACTIVITY HAS LESSENED AND N/V IS NO LONGER BOTHERING HER. PATIENT ATE DINNER THAT FAMILY HAS BROUGHT HER, BUT STATED "I HAVE NEVER REALLY BEEN AN EATER". APPETITE IS IMPROVING BUT NOT ADEQUATE. PRN PAIN MEDS ARE GIVEN NEEDED PER EMAR W ASSIST FROM GUNNAR KIM. PATIENT IS STILL SHAKING AND GRIMACING AFTER TRANSFERRING FROM BED TO CHAIR/BSC. PATIENT IS STILL TO HAVE A BM. BEFORE BED, PATIENT ALLOWED THIS NURSE TO COMB HAIR AND DOES NOT SEEM IRRITABLE BEFORE. PLAN IS STILL TO DISCHARGE TO [facility] ON SATURDAY. FALL PRECAUTIONS IN PLACE, PATIENT CLOSE TO NURSES STATION; CALLS OUT APPROPRIATELY. WILL CONTINUE TO MONITOR AND FOLLOW PLAN OF CARE ...PATIENT WAS GIVEN MELATONIN ONETIME AND THIS IS HELPING HER SLEEP ASHER
[2019-11-01 04:53] LABS: MCH 29.9 pg (26.0-34.0); MCHC 32.3 g/dL (28.0-37.0); MCV 92.6 fL (80.0-100.0); RBC 3.24 mil/uL (4.20-5.00); RDW 13.9 % (10.5-14.5); WBC 6.5 thou/uL (4.0-11.0)
--- NOTE | 2019-11-01 04:58 | NUR ---
THIS NURSE AGREES WITH ASSESSMENT AND NOTES FROM MINER PLACER ON THIS PATIENT.
[2019-11-01 05:05] LABS: HEMOGLOBIN 9.7 gm/dL (12.0-15.0)
[2019-11-01 05:17] LABS: ALBUMIN 2.6 g/dL (3.4-5.0); CALCIUM 8.2 mg/dL (8.5-10.1); CREATININE 0.7 mg/dL (0.6-1.0); PHOSPHORUS 2.2 mg/dL (2.5-4.9); POTASSIUM 4.1 mmol/L (3.5-5.1)
[2019-11-01 07:10] VITALS: BP 134/46
--- NOTE | 2019-11-01 18:35 | NUR ---
PT ASSESSED DURING CHANGE OF SHIFT. O2 SAT ON 2L WAS 86%. INCREASED TO 4L W/ SAT AT 91%. RESP THERAPY PAGED. DR. BARRIOS NOTIFIED AND ORDERS NOTED. IV STEROIDS STARTED AND MORPHINE CHANGED TO TYL #3. PT ABLE TO TAKE LONG AFTERNOON NAP AND WAS FEELING MUCH BETTER WHEN AWAKENED. UP TO BSC W/ ASSIST. NOT SOA W/ EXERTION. O2 NOW 3.5. AEROSOL TX ORDERED PRN. DAUGHTER KASEY IN [place]OWN FOR FEW DAYS AND HAS BEEN RECONNECTING W/ MOTHER AFTER SOME YEARS APART.
[2019-11-01 20:45] VITALS: BP 120/53
--- NOTE | 2019-11-02 04:26 | NUR ---
PATIENT ALERT AND ORIENTED X4 WITH SOME FORGETFULNESS. UP WITH ONE ASSIST TO BSC. IVF INFUSING W/O COMPLICATION. LEFT ARM IN IMMOBILIZER DUE TO FALL. 02NC 3L. SOME SOA NOTED WITH EXERTION. RESTED WELL DURING THE NIGHT. WILL MONITOR.
[2019-11-02 08:30] VITALS: BP 144/80
[2019-11-02] MEDS ORDERED: PREDNISONE 5 MG5 M1 PO (10:16)
--- NOTE | 2019-11-02 11:50 | NUR ---
KELLEY reviewed chart and spoke with nursing and attending physician. Pt is medically stable for discharge to post-acute care today. KELLEY notified that [facility] does not have a bed available until later in the week. KELLEY discussed with pt's dtr, Annel. Provided additional options for SNF placement and the SNFs that have agreements to [facility] pts to [facility] when [facility] do have a bed available. Pt's family would like SNF referral to be sent to [facility] due to location. logistics planner to fax referral. KELLEY updated attending physician. KELLEY is following to assist as needed with discharge planning.
--- NOTE | 2019-11-02 11:58 | NUR ---
discharge planning. patient is ready for discharge today. post acute recommended at discharge. [facility], per family request. call placed to [facility] admissions. spoke with gill, early childhood education coordinator. gill to review and notify cm. awaiting response.
[2019-11-02] MEDS ORDERED: APAP W/CODEINE1 TA2 PO (13:48)
--- NOTE | 2019-11-02 14:17 | NUR ---
PT DISCHARGED TO [facility] VIA W/C VAN WITH O2 AND DAUGHTER...REPORT CALLED AND RX SENT FOR TYLENOL#3...
== END 2019-11-02 14:19 | DRG 562 ==
LOC: ER 22:48 → EROBS 10-30 02:20 → 4N 10-30 02:20
PROVIDERS: Emergency Medicine; Nurse Practitioner Family; ADMIT Hospitalist
PROC: 2W3BX1Z Immobilization of Left Upper Arm using Splint (ICD-10-PCS; principal; 2019-10-30)
DX: S42.202A Unspecified fracture of upper end of left humerus, initial encounter for closed fracture (principal); N17.0 Acute kidney failure with tubular necrosis; E43 Unspecified severe protein-calorie malnutrition; J44.1 Chronic obstructive pulmonary disease with (acute) exacerbation; E46 Unspecified protein-calorie malnutrition; I27.20 Pulmonary hypertension, unspecified; E78.5 Hyperlipidemia, unspecified; I10 Essential (primary) hypertension; G47.00 Insomnia, unspecified; F03.90 Unspecified dementia, unspecified severity, without behavioral disturbance, psychotic disturbance, mood disturbance, and anxiety; W18.39XA Other fall on same level, initial encounter; M25.571 Pain in right ankle and joints of right foot; Z60.2 Problems related to living alone; Z99.81 Dependence on supplemental oxygen; Z87.891 Personal history of nicotine dependence; Z87.81 Personal history of (healed) traumatic fracture; Z68.20 Body mass index [BMI] 20.0-20.9, adult; Y93.89 Activity, other specified; Y92.89 Other specified places as the place of occurrence of the external cause; Z72.89 Other problems related to lifestyle; Z88.0 Allergy status to penicillin; Y99.8 Other external cause status
CPT/HCPCS: 10091